=== PATIENT | female | born 1975 | race Caucasian/White ===

== ENCOUNTER 2023-12-20 14:45 | Outpatient (OUT) | payer OTHER, SELFPAY ==
--- NOTE | 2023-12-20 | XR_ITS ---
The [address] [address] Patient Name: JOSE ALFREDO BAPTISTE MRN: [id number] date: 1975 Sex: F Assigned Patient Location: [facility] Current Patient Location: [facility] Accession/Order Number: [id number] Exam Date: 12/20/2023 14:55 Report Date: 12/20/2023 15:52 At the request of: CASSIDY BURLESON Procedure: XR foot LT min 3V PROCEDURE: XR foot LT min 3V COMPARISON: None. HISTORY: LEFT FOOT PAIN PAIN FINDINGS: BONES:No fracture, acute abnormality, or significant arthropathy. SOFT TISSUES:Negative. No visible soft tissue swelling. EFFUSION:None visible. OTHER: Negative. XR/XR foot LT min 3V IMPRESSION: No acute radiographic abnormality Electronically authenticated by: ELISE MOMIN Date: 12/20/2023 15:52
== END 2023-12-20 14:46 | disposition home or self-care (01) ==
LOC: RAD 14:46
PROVIDERS: Visit Provider Physician Assistant
DX: M79.672 Pain in left foot (principal)
CPT/HCPCS: 73630